=== PATIENT | female | born 1955 | race Caucasian/White ===

== ENCOUNTER 2018-12-01 15:07 | Emergency (ER) | payer OTHER ==
[~2018-12-01] VITALS: Ht 160 cm; Wt 54.4 kg
[~2018-12-01 15:07] MED LIST: CARAFATE1 GM PO; CLONAZEPAM1 MG PO; COLACE100 MG PO; JANUVIA100 MG PO; LANTUS SOL100 UNIT/1; LOSARTAN POTAS100 MG PO; LOVAZA1 GM PO; NORVASC5 MG PO; PERCOCET 5-3251 EACH PO; PROTONIX20 MG PO; VITAMIN D400 UNIT PO
[2018-12-01] MEDS ORDERED: ATORVASTATIN CA20 MG (15:27)
[2018-12-01] MEDS ORDERED: MACRODANTIN100 MG (15:30)
== END 2018-12-01 17:49 | disposition home or self-care (01) ==
LOC: ER 15:07
DX: M54.5 Low back pain (principal)